=== PATIENT | male | born 1955 | race Caucasian/White ===

== ENCOUNTER 2017-08-27 16:48 | Emergency (ER) | payer MEDICAID ==
[~2017-08-27] VITALS: Ht 182.9 cm; Wt 69.9 kg
[2017-08-27] MEDS ORDERED: ALL DAY ALLERGY10 MG PO (16:59)
[2017-08-27] MEDS ORDERED: OMEPRAZOLE40 MG PO (16:59)
[2017-08-27] MEDS ORDERED: SERTRALINE 50MG50 MG PO (16:59)
[2017-08-27] MEDS ORDERED: NATURE'S BLEND F1 MG PO (17:00)
--- NOTE | 2017-08-27 17:03 | Emergency Room Report ---
History of Present Illness Time Seen by [id number] Presenting Problem in Triage Pt arrived:Walked Presenting Problem:PT REPORTS PAIN WITH INSPIRATION IN R UPPPER BACK X1 MONTH. PT ALSO REPORTS PAIN WITH URINATION X1 WEEK Onset of symptoms date/time:/ or onset unknown for:MEDICAL HX UNKNOWN Treatment Prior to Arrival: INTERNET PROGRAMMER Provided by: Sepsis Risk Assessment: Temp: 97.7 B/P: 106/66 MAP: 79 Pulse: 78 Resp: 18 Recent fever? N Clinical Suspician of Infection? N Mental Status: 1 - Regular (Normal Baseline) Sepsis Risk:Low Sepsis Risk Have you (or family members/close friends) recently traveled outside the [place]? N If Yes, where/when: Have you had exposure to infectious disease within the past month? N TB? Other? Specify: Patient with chronic back pain, and chronic hematuria. Recently on Augmentin for UTI, but continues to have back pain that is positional, relieved with steroid pack and Naproxen per his COUNSELING PSYCHOLOGIST. No fever or vomiting. No new neurological symptoms. Has been seen by Dr. Haile in the past. No abdominal pain. No loss of bowel or bladder function. Back pain seems somewhat worse today, worse with change in position or movement or coughing. No SOB, no cough. ALLERGIES Coded Allergies: meperidine (From Demerol) (Intermediate, I-HIVES/ITCH 09/26/15) oxycodone (From Percocet) (Intermediate, I-HIVES/ITCH 09/26/15) Home Medications Reported Medications CETIRIZINE HCL (All Day Allergy) 10 MG PO DAILY #30 Sertraline Hcl (Sertraline 50MG) 1.5 TAB PO DAILY #45 Omeprazole (Omeprazole 40MG) 40 MG PO DAILY #30 Folic Acid 1 MG PO DAILY #30 History Medical History General CAD? No Angina: No DE: No Hypertension? No Hyperlipidemia? No CHF? No DVT? No COPD? No Asthma? No GERD? Yes Hernia? No Thyroid Problems? Yes CVA? No Seizures? No Diabetes? No UTI? Yes Stones? No GB Disease: No Hepatitis? No Arthritis? Yes Cataracts? No Glaucoma? No TB? No Cancer? Yes Site: BLADDER More? Yes Additional hx: DEPRESSION Immunization Hx DT/Tetanus Unknown Flu Refused Pneumonia Never Had Surgical Hx Previous Surgery?Y BLADDER CA-TUMOR REMOVED BILATERAL EAR SURGERIES TONSILLECTOMY Family History Family Hx Diabetes Yes CAD Yes Hypertension Yes Hyperlipidemia Yes Cancer Yes TB No Social History Smoking Hx Smoker: Current Every Day Smoker Tobacco: Yes Type Cigarettes Packs/day < 1 Pack Alcohol Alcohol: No Review of Systems All Other Systems Reviewed and Negative Genitourinary see HPI. Musculoskeletal see HPI Physical Exam Vital Signs Vital Signs Date Time Temp Pulse Resp B/P Pulse O2 O2 Flow FiO2 Ox Delivery Rate 08/27 1743 77 18 112/70 98 08/27 1653 97.7 78 18 106/66 98 General Appearance normal appearance, WD/WN, no apparent distress Eye Exam - bilateral eye normal exam, bilateral eye PERRL, bilateral eye EOMI Neck normal inspection, non-tender, supple, full range of motion Respiratory Status Yes: trachea midline, chest symmetrical, non tender chest. No: respiratory distress, tender on palpation, use of accessory muscles, pain on inspiration, pain on expiration, productive cough, non productive cough. Lung Sounds bilateral: normal breath sounds, lungs clear. Cardiovascular normal exam, regular rate/rhythm, no peripheral edema, no gallop, no JVD, no murmur, no rub, normal peripheral pulses Gastrointestinal normal bowel sounds, normal exam, non tender, soft, no organomegaly, no pulsatile mass, no guarding, no rebound Back normal inspection, no CVA tenderness, no vertebral tenderness, bowel/ bladder continent, strt leg raising(L)-NML, vertebral tenderness, Positional pain, right lat area with palpation but no CVAT. No pleurisy. Extremities non-tender, normal range of motion, normal inspection, normal capillary refill, no calf tenderness, no pedal edema Strength 5 Upper Ext (L), 5 Upper Ext (R), 5 Lower Ext (L), 5 Lower Ext (R) Neurologic alert, normal exam, no motor/sensory deficits, oriented x 3 Skin intact, normal color, warm/dry Medical Decision Making LABS/Meds/Orders Pt receiving controlled substance in ED? No Results/Orders Laboratory Tests 08/27/17 1700: Urine Color DK YELLOW, Urine Appearance TURBID, Urine pH 7.0, Ur Specific Ken[place] 1.025, Urine Protein 2+ H, Urine Ketones TRACE H, Urine Blood 3+ H, Urine Nitrate POSITIVE H, Urine Bilirubin NEGATIVE, Urine Urobilinogen 1.0, Ur Leukocyte Esterase 2+ H, Urine RBC TNTC, Urine WBC TNTC, Urine Bacteria 4+, Urine Glucose NEGATIVE Orders Procedure Date/time Status URINALYSIS/COMPLETE 08/27 170 Complete CULTURE, URINE 08/27 170 Active Departure Departure Time of Disposition 1738 Disposition DC Home or Self Care(routine) Clinical Impression Primary Impression: Cystitis Condition STABLE Referrals Pedro Luis Haile MD Patient Instructions Urinary Tract Infection Additional Instructions Drink plenty of fluids. Continue the Percocet from your nurse practitioner and see Dr. Haile for follow up in three to four days, sooner if not improving. Rx Cipro: this is an antibiotic. We do not have an antibiotic allergy listed on our records, nor does your pharmacy after we called them to check. You state you have an antibiotic allergy: please check your bottle at home that you say you are allergic to BEFORE you bring your prescription to your pharmacy so your pharmacist can determine if it's safe to take the Cipro or not and also update your allergy list. Discharge Counseling Counseled pt/family regarding diagnosis, test results, medications/RX, home care, follow up needs Prescriptions Current Visit Scripts CIPROFLOXACIN HCL (Cipro 250MG TAB) 250 MG PO BID #20 TAB Phenazopyridine HCl (Pyridium) 100 MG PO Q8HP PRN pain with urination #6 TAB ED Critical Care Critical Care No at 1806
--- OUTSIDE RECORDS SUMMARY | 2017-08-27 17:14 | External Medical Summary Rpt | CCD ---
Author Author , ROSA LEE Address Unknown Phone [email or web address] Care Team Providers Care Economic Development Manager Name Role Phone A Katalina POTTER MD PSC, A Unavailable Unavailable Katalina POTTER MD PSC BESSON SHABBIR, ENRIQUE Unavailable Unavailable SHABBIR DOMINGO ALL, DOMINGO ALL Unavailable Unavailable LAI, DAVIDE F, Unavailable Unavailable LAI, DAVIDE F PARIS, CARI Marie, [place], Unavailable Unavailable CARI Marie [facility], Unavailable Unavailable [facility] Unavailable Unavailable [facility] KRUNAL GRAH[facility], Unavailable Unavailable [facility] Unavailable Unavailable [facility], [facility] NIKA JR JEFFERY, NIKA Unavailable Unavailable JR JEFFERY [facility], [facility] Unavailable Unavailable SINTIA PATRICIO Unavailable Unavailable SINTIA ESSENCE, SINTIA Unavailable Unavailable [facility] Unavailable Unavailable [facility], [facility] Unavailable Unavailable [facility]PITAL P, [facility] P DICK DOWNS, Unavailable Unavailable [facility]available [facility], [facility] KILPELA, KILPELA Unavailable Unavailable KILPELA JEA, KILPELA Unavailable Unavailable [facility], Unavailable Unavailable [facility] MOHINDER SHABBIR, MOHINDER SHABBIR Unavailable Unavailable [facility] Unavailable Unavailable INC[facility], Unavailable Unavailable [facility], Unavailable Unavailable [facility] Unavailable Unavailable MEDICAL SP, [facility] CHRIS TSE, Unavailable Unavailable CHRIS LEONF, MIRYAM Unavailable Unavailable BELLO Purpose Continuity of Care Document - 12-01-2007 through 2016 Problems Code Diagnosis DOS Provider Status R05 COUGH 06-30-2017 [facility] J209 ACUTE 06-29-2017 Denzel POTTER BRONCHITIS PSC UNSPECIFIED [id number] OTHER 06-29-2017 Denzel POTTER SPECIFIED PSC DISORDERS OF BONE SHOULDER R5383 OTHER 06-29-2017 Denzel POTTER FATIGUE PSC [id number] PAIN IN 04-21-2017 Denzel POTTER RIGHT KNEE PSC N390 URINARY 04-21-2017 A Katalina POTTER TRACT PSC INFECTION SITE NOT SPECIFIED R300 DYSURIA 04-21-2017 A Katalina POTTER MD [facility] Z8551 PERSONAL 09-10-2016 [facility] P NEOPLASM OF BLADDER H6591 UNSPECIFIED 06-17-2016 A Katalina POTTER MD [facility] NONSUPPURAT BREANNE OTITIS MEDIA RT EAR J0100 ACUTE 06-17-2016 A Katalina POTTER MAXILLARY [facility] SINUSITIS UNSPECIFIED B958 UNS 05-19-2016 A Katalina POTTER STAPHYLOCOC [facility] CUSS CAUSE OF DZ CLASSIFIED ELSW [id number] ALLERGY 05-19-2016 A Katalina COMBS MD [facility] INITIAL ENCOUNTER R310 GROSS 03-20-2016 [facility] R972 ELEVATED 02-26-2016 [facility] SPECIFIC ANTIGEN PSA M549 DORSALGIA 01-08-2016 [facility] N87777 PAIN IN 01-08-2016 A Katalina POTTER RIGHT LEG [facility] R350 FREQUENCY 01-08-2016 A Katalina CASTAÑEDA [facility] MICTURITION R319 HEMATURIA 10-10-2015 [facility] P C679 MALIGNANT 09-26-2015 [facility] NEOPLASM OF ANESTH OF BLADDER [facility] UNSPECIFIED N342 OTHER 08-22-2015 A Katalina POTTER URETHRITIS [facility] 5990 URINARY 04-23-2015 A Katalina POTTER TRACT [facility] INFECTION SITE NOT SPECIFIED 7881 DYSURIA 04-23-2015 A Katalina POTTER MD [facility] V692 PROBLEMS 04-23-2015 A Katalina POTTER RELATED TO [facility] HIGH-RISK SEXUAL BEHAVIOR 35919 UNSPECIFIED 04-16-2015 [facility] DENTAL ANESTH OF CAR[facility] 7242 LUMBAGO 03-26-2015 A Katalina POTTER MD [facility] 4779 ALLERGIC 02-19-2015 A Katalina POTTER RHINITIS [facility] CAUSE UNSPECIFIED 96654 ESOPHAGEAL 02-19-2015 A Katalina POTTER REFLUX [facility] 5259 UNSPECIFIED 11-14-2014 [facility] RTING STRUCTURES 2768 HYPOPOTASSE 05-06-2010 KIRK G[facility] 13683 DIARRHEA 05-06-2010 KRUNAL [facility] 71961 DIAB W/O 01-04-2008 JOELLE COMP TYPE DAVIDE F II/UNS NOT STATED UNCNTRL 2727 LIPIDOSES 01-04-2008 DAVIDE LAI F 7249 OTHER 01-04-2008 HARTING, UNSPECIFIED DICK E BACK DISORDER 7295 PAIN IN 01-04-2008 LAI, SOFT DAVIDE F TISSUES OF LIMB 23315 REFLUX 12-01-2007 CARI TOL[place]O ESOPHAGITIS E 63747 DYSPHAGIA 12-01-2007 [facility] PHARYNGOESO E PHAGEAL PHASE Medications Na ND Rx Da Fi Fi Am Da Di Ph RX Ph St me C No te ll ll ou ys ag ar # ys at rm s nt no ma ic us Or Da si cy ia de te s n re d FO 65 09 10 30 30 00 EA Ac LI 16 -2 -[address] ti C 20 1- 0- 00 00 SI ve AC 36 20 20 50 DE ID 11 17 17 25 1 1 03 PH AR MG MA CY TA BL OF ET CY NT HI AN A IN C OM 62 09 10 30 30 00 EA Ac EP 17 -0 -[address] ti RA 50 7- 6- 00 00 SI ve ZO 13 20 20 49 DE LE 64 17 [address] AR MA 40 CY MG OF CY CA NT PS HI UL AN E A IN C CE 16 09 10 30 30 00 EA Ac TI 71 -0 -[address] ti RI 40 7- 6- 00 00 SI ve ZI 27 20 20 49 DE NE 10 17 17 37 3 88 PH HC AR L MA 10 CY MG OF CY TA NT BL HI ET AN A IN C SE 16 09 10 45 30 00 EA Ac RT 71 -0 -[address] ti RA 40 7- 6- 00 00 SI ve LI 61 20 20 49 DE NE 20 17 17 37 6 90 PH HC AR L MA 50 CY MG OF CY TA NT BL HI ET AN A IN C AZ 64 08 09 6. 5 00 EA Ac IT 67 -2 -[address] ti HR 90 2- 5- 0 00 SI ve OM 96 20 20 49 DE YC 10 17 17 88 IN 5 34 PH AR 25 MA 0 CY MG OF TA CY BL NT ET HI AN A IN C FO 65 08 09 30 30 00 EA Ac LI 16 -2 -[address] ti C 20 2- 5- 00 00 SI ve AC 36 20 20 49 DE ID 11 17 17 88 1 1 35 PH AR MG MA CY TA BL OF ET CY NT HI AN A IN C VE 00 08 09 18 18 00 EA Ac NT 17 -2 -[address] ti OL 30 2- 5- 00 00 SI ve IN 68 20 20 49 DE 22 17 17 88 HF 0 36 PH A AR 90 MA CY MC G OF IN CY DOUGLAS NT LE HI R AN A IN C DI 65 08 09 40 30 00 EA Ac CL 16 -2 -[address] ti OF 20 2- 5- 00 00 SI ve EN 83 20 20 0 49 DE AC 36 17 17 88 6 37 PH SO AR DI MA UM CY 1% OF CY GE NT L HI AN A IN C SE 16 08 09 45 30 00 EA Ac RT 71 -0 -[address] ti RA 40 8- 1- 00 00 SI ve LI 61 20 20 49 DE NE 20 17 17 37 6 90 PH HC AR L MA 50 CY MG OF CY TA NT BL HI ET AN A IN C OM 62 08 09 30 30 00 EA Ac EP 17 -0 -[address] ti RA 50 8- 1- 00 00 SI ve ZO 13 20 20 49 DE LE 64 17 [address] AR MA 40 CY MG OF CY CA NT PS HI UL AN E A IN C CE 16 08 09 30 30 00 EA Ac TI 71 -0 -[address] ti RI 40 8- 1- 00 00 SI ve ZI 27 20 20 49 DE NE 10 17 17 37 3 88 PH HC AR L MA 10 CY MG OF CY TA NT BL HI ET AN A IN C DI 65 07 08 10 14 00 EA Ac CL 16 -2 -[address] ti OF 20 6- 8- 00 00 SI ve EN 83 20 20 0 49 DE AC 36 17 17 13 6 08 PH SO AR DI MA UM CY 1% OF CY GE NT L HI AN A IN C NA 68 07 08 60 30 00 EA Ac OH 46 -2 -[address] ti OX 20 6- 8- 00 00 SI ve EN 17 20 20 49 DE 90 17 17 57 SO 1 72 PH DI AR UM MA CY 55 0 OF MG CY NT TA HI B AN A IN C CE 16 07 08 30 30 00 EA Ac TI 71 -0 -[address] ti RI 40 7- 4- 00 00 SI ve ZI 27 20 20 49 DE NE 10 17 17 37 3 88 PH HC AR L MA 10 CY MG OF CY TA NT BL HI ET AN A IN C OM 62 07 08 30 30 00 EA Ac EP 17 -0 -[address] ti RA 50 7- 4- 00 00 SI ve ZO 13 20 20 49 DE LE 64 17 [address] AR MA 40 CY MG OF CY CA NT PS HI UL AN E A IN C SE 16 07 08 45 30 00 EA Ac RT 71 -0 -[address] ti RA 40 7- 4- 00 00 SI ve LI 61 20 20 49 DE NE 20 17 17 37 6 90 PH HC AR L MA 50 CY MG OF CY TA NT BL HI ET AN A IN C NA 68 06 07 60 30 00 EA Ac OH 46 -0 -[address] ti OX 20 8- 7- 00 00 SI ve EN 17 20 20 49 DE 90 17 17 05 SO 1 97 PH DI AR UM MA CY 55 0 OF MG CY NT TA HI B AN A IN C DI 65 06 07 10 14 00 EA Ac CL 16 -1 -[address] ti OF 20 4- 7- 00 00 SI ve EN 83 20 20 0 49 DE AC 36 17 17 13 6 08 PH SO AR DI MA UM CY 1% OF CY GE NT L HI AN A IN C DO 49 06 07 14 7 00 EA Ac XY 88 -1 -[address] ti CY 40 4- 7- 00 00 SI ve CL 72 20 20 49 DE IN 70 17 17 13 E 3 07 PH MO AR NO MA CY 10 0 OF MG CY NT CA HI P AN A IN C CE 16 06 06 30 30 00 EA Ac TI 71 -0 -[address] ti RI 40 6- 0- 00 00 SI ve ZI 27 20 20 48 DE NE 10 17 17 29 3 16 PH HC AR L MA 10 CY MG OF CY TA NT BL HI ET AN A IN C OM 62 06 06 30 30 00 EA Ac EP 17 -0 -[address] ti RA 50 6- 0- 00 00 SI ve ZO 13 20 20 48 DE LE 64 17 [address] AR MA 40 CY MG OF CY CA NT PS HI UL AN E A IN C SE 16 06 06 45 30 00 EA Ac RT 71 -0 -[address] ti RA 40 6- 0- 00 00 SI ve LI 61 20 20 48 DE NE 20 17 17 29 6 15 PH HC AR L MA 50 CY MG OF CY TA NT BL HI ET AN A IN C OM 62 05 06 30 30 00 EA Ac EP 17 -0 -[address] ti RA 50 6- 2- 00 00 SI ve ZO 13 20 20 48 DE LE 64 17 [address] AR MA 40 CY MG OF CY CA NT PS HI UL AN E A IN C SE 16 05 06 45 30 00 EA Ac RT 71 -0 -[address] ti RA 40 6- 2- 00 00 SI ve LI 61 20 20 48 DE NE 20 17 17 29 6 15 PH HC AR L MA 50 CY MG OF CY TA NT BL HI ET AN A IN C CE 16 05 06 30 30 00 EA Ac TI 71 -0 -[address] ti RI 40 6- 2- 00 00 SI ve ZI 27 20 20 48 DE NE 10 17 17 29 3 16 PH HC AR L MA 10 CY MG OF CY TA NT BL HI ET AN A IN C OM 62 04 05 30 30 00 EA Ac EP 17 -0 -[address] ti RA 50 7- 5- 00 00 SI ve ZO 13 20 20 48 DE LE 64 17 [address] AR MA 40 CY MG OF CY CA NT PS HI UL AN E A IN C SE 16 04 05 45 30 00 EA Ac RT 71 -0 -[address] ti RA 40 7- 5- 00 00 SI ve LI 61 20 20 48 DE NE 20 17 17 29 6 15 PH HC AR L MA 50 CY MG OF CY TA NT BL HI ET AN A IN C CE 16 04 05 30 30 00 EA Ac TI 71 -0 -[address] ti RI 40 7- 5- 00 00 SI ve ZI 27 20 20 48 DE NE 10 17 17 29 3 16 PH HC AR L MA 10 CY MG OF CY TA NT BL HI ET AN A IN C KE 00 04 05 12 30 00 EA Ac TO 78 -0 -[address] ti CO 17 7- 5- 00 00 SI ve NA 09 20 20 0 48 DE ZO 00 17 17 29 LE 4 17 PH AR 2% MA CY SH AM OF PO CY O NT HI AN A IN C MU 00 03 04 22 14 00 EA Ac PI 09 -3 -[address] ti RO 31 0- 8- 00 00 SI ve CI 01 20 20 48 DE N 04 17 17 18 2% 2 20 PH AR OI MA NT CY ME NT OF CY NT HI AN A IN C OM 62 03 03 30 30 00 EA Ac EP 17 -0 -[address] ti RA 50 7- 1- 00 00 SI ve ZO 13 20 20 46 DE LE 64 17 [address] AR MA 40 CY MG OF CY CA NT PS HI UL AN E A IN C NA 68 03 03 60 30 00 EA Ac OH 46 -0 -[address] ti OX 20 7- 1- 00 00 SI ve EN 17 20 20 47 DE 90 17 17 88 SO 1 51 PH DI AR UM MA CY 55 0 OF MG CY NT TA HI B AN A IN C CE 16 03 03 30 30 00 EA Ac TI 71 -0 -[address] ti RI 40 7- 1- 00 00 SI ve ZI 27 20 20 47 DE NE 10 17 17 88 3 52 PH HC AR L MA 10 CY MG OF CY TA NT BL HI ET AN A IN C SE 16 03 03 45 30 00 EA Ac RT 71 -0 -[address] ti RA 40 7- 1- 00 00 SI ve LI 61 20 20 47 DE NE 20 17 17 88 6 53 PH HC AR L MA 50 CY MG OF CY TA NT BL HI ET AN A IN C OM 62 02 03 30 30 00 EA Ac EP 17 -0 -[address] ti RA 50 3- 3- 00 00 SI ve ZO 13 20 20 46 DE LE 64 17 [address] AR MA 40 CY MG OF CY CA NT PS HI UL AN E A IN C CE 16 02 03 30 30 00 EA Ac TI 71 -0 -[address] ti RI 40 3- 3- 00 00 SI ve ZI 27 20 20 46 DE NE 10 17 17 92 3 38 PH HC AR L MA 10 CY MG OF CY TA NT BL HI ET AN A IN C SE 16 02 03 45 30 00 EA Ac RT 71 -0 -[address] ti RA 40 3- 3- 00 00 SI ve LI 61 20 20 47 DE NE 20 17 17 48 6 89 PH HC AR L MA 50 CY MG OF CY TA NT BL HI ET AN A IN C CE 16 12 01 30 30 00 EA Ac TI 71 -1 -[address] ti RI 40 6- 3- 00 00 SI ve ZI 27 20 20 46 DE NE 10 16 17 92 3 38 PH HC AR L MA 10 CY MG OF CY TA NT BL HI ET AN A IN C SE 16 12 01 45 30 00 EA Ac RT 71 -1 -[address] ti RA 40 6- 3- 00 00 SI ve LI 61 20 20 46 DE NE 20 16 17 92 6 39 PH HC AR L MA 50 CY MG OF CY TA NT BL HI ET AN A IN C OM 62 12 01 30 30 00 EA Ac EP 17 -2 -[address] ti RA 50 1- 3- 00 00 SI ve ZO 13 20 20 46 DE LE 64 16 [address] RIVERA MA 40 CY MG OF CY CA NT PS HI UL AN E A IN C Procedures Procedure DOS Code Location Performer Comment RADIOLOGI 92864 [facility] GR[facility] C EXAM [facility] CHEST 2 INC INC VIEWS FRONTAL&L ATERAL COLLECTIO 25159 A C PATRICIO N VENOUS 7 ABBEY HOGAN BLOOD PSC VENIPUNCT URE URINLS 95486 A C KILPELA DIP 7 ABBEY HOGAN STICK/TAB PSC LET REAGNT NON-AUTO MICRSCPY URNLS DIP 86881 CHEO MAHER JR [address] [place] [address] LET RGNT P NON-AUT[place] W/[place] [address] [facility] ALL ABDOMEN & 6 MEDICAL PELVIS IMAGING W/[place] [address] [facility] PROSTATE 6 DIAGNOSTI DIAGNOSTI SPECIFIC CS CS ANTIGEN TOTAL CULTURE 05057 [facility] BCT 6 DIAGNOSTI DIAGNOSTI ISOL&PRSM CS CS PTV ID ISOLATE EA URINE CULTURE 88601 [facility] BACTERIAL 6 DIAGNOSTI DIAGNOSTI CS CS QUANTTATI VE COLONY COUNT URINE URINLS 02760 A C KILPELA DIP 6 ABBEY HOGAN JEA STICK/TAB PSC LET REAGNT NON-AUTO MICRSCPY COMPREHEN 35701 [facility] SIVE 6 DIAGNOSTI DIAGNOSTI METABOLIC CS CS PANEL BLOOD 50567 A C KILPELA COUNT 6 ABBEY HOGAN JEDenzel COMPLETE PSC AUTO&AUTO DIFRNTL WBC URNLS DIP 38491 CHEO MAHER JR [address] [place] [address] LET RGNT P NON-AUTO W/O MICRSCP ANES 65575 [facility] TRANSURET 5 ANESTH BELLO HRAL OF THE W/URETHRO BLUE CYSTOSCOP Y NOS ECG 44891 CHEO NUNEZ ROUTINE 5 [facility] W/LEAST P 12 LDS I&R ONLY CYSTOURET 48659 [facility] GR[facility]ER HROSCOPY 5 [place] [address] [facility] INFUSION 5 [facility] THERAPY INC INC PROPHYLAX IS/DX EA HOUR UNCLASSIF J3490 [facility] IED DRUGS 5 [facility] INC INC CHANTAL 40721 [facility] MAHER POST-VOID 5 [facility] RESIDUAL P URINE&/BL ADDER CAP URNLS DIP 44634 CHEO MAHER JR 5 [facility] LET RGNT P NON-AUTO W/O MICRSCP SUSCEPTIB 93452 [facility] LTY STDY 5 DIAGNOSTI DIAGNOSTI ANTIMICRB CS CS IAL MICRO/AGA R DILUTJ URINLS 24828 A C KILPELA DIP 5 ABBEY HOGAN JEA STICK/TAB PSC LET REAGNT NON-AUTO MICRSCPY CUL BACT 42176 [facility] AEROBIC 5 DIAGNOSTI DIAGNOSTI ADDL CS CS METHS DEFINITIV E EA ISOL CULTURE 01179 [facility] BACTERIAL 5 DIAGNOSTI DIAGNOSTI CS CS QUANTTATI VE COLONY COUNT URINE CULTURE 00199 [facility] BCT 5 DIAGNOSTI DIAGNOSTI ISOL&PRSM CS CS PTV ID ISOLATE EA URINE CULTURE 47364 [facility] BCT 5 DIAGNOSTI DIAGNOSTI ISOL&PRSM CS CS PTV ID ISOLATE EA URINE URINLS 72827 A C MOHINDER SHABBIR DIP 5 ABBEY HOGAN STICK/TAB PSC LET REAGNT NON-AUTO MICRSCPY CUL BACT 20817 [facility] AEROBIC 5 DIAGNOSTI DIAGNOSTI ADDL CS CS METHS DEFINITIV E EA ISOL CULTURE 30528 [facility] BACTERIAL 5 DIAGNOSTI DIAGNOSTI CS CS QUANTTATI VE COLONY COUNT URINE SUSCEPTIB 52120 [facility] LTY STDY 5 DIAGNOSTI DIAGNOSTI ANTIMICRB CS CS IAL MICRO/AGA R DILUTJ COLLECTIO 15871 A C MOHINDER SHABBIR N VENOUS 5 ABBEY HOGAN BLOOD PSC VENIPUNCT URE URINLS 75328 A C MOHINDER SHABBIR DIP 5 ABBEY HOGAN STICK/TAB PSC LET REAGNT NON-AUTO MICRSCPY ANESTHESI 06124 [facility] CHRIS A 5 ANESTH SHE INTRAORAL OF THE WITH BLUE BIOPSY NOS THERAPEUT 71148 [facility] [address] [place] [address] PROPHYLAC INC. INC. TIC/DX INJECTION SUBQ/IM UNCLASSIF J3490 [facility] [address] [place] [address] INC. INC. INJECTION J1885 [address] [employer] INC. INC. TROMETHAM INE PER 15 MG ALBUMIN 35064 JOELLE LAI, URINE 8 DAVIDE F DAVIDE F MICROALBU MIN SEMIQUANT ITATIVE HEMOGLOBI 51372 JOELLE LAI, N 8 DAVIDE F DAVIDE F GLYCOSYLA CHAI A1C COMPREHEN 37341 [facility] [place] [facility] [place] [facility] METABOLIC PANEL RADEX 33807 JOELLE LAI SPINE 8 DAVIDE F DAVIDE F LUMBOSACR AL MINIMUM 4 VIEWS Encounters Encounter Start End Date Code Location Performer Type Date HOSPITAL [facility] - 7 7 [facility] OUTPATIEN [facility] T OFFICE 81016 A C PATRICIO OUTPATIEN 7 7 ABBEY HOGAN T VISIT PSC 25 MINUTES OFFICE 45882 A C ARNOLDPELA OUTPATIEN 7 7 [facility]BE[facility] HOGAN T VISIT PSC 15 MINUTES OFFICE 82740 [facility]O MAHER JR OUTPATIEN 6 6 [facility] 10 P MINUTES OFFICE 43341 A C PATRICIO OUTPATIEN 6 6 ABBEY LOWRY T VISIT PSC 15 MINUTES OFFICE 81352 A C PATRICIO OUTPATIEN 6 6 [facility] LOWRY T VISIT PSC 15 MINUTES HOSPITAL CHEO - 6 6 [facility] OUTPATIEN [facility] T OFFICE 19728 A C KILPELA OUTPATIEN 6 6 ABBEY CUMMINS T VISIT PSC 15 MINUTES OFFICE 90981 [facility] MAHER JR OUTPATIEN 5 5 [facility] 10 P MINUTES HOSPITAL [facility] - 5 5 [facility]HER OUTPATIEN 5 5 [facility] MINUTES P OFFICE 59506 A C PORTILLOHELENA OUTPATIEN 5 5 ABBEY CUMMINS T VISIT PSC 15 MINUTES OFFICE 59932 A Katalina VINES SHABBIR OUTPATIEN 5 5 ABBEY HOGAN T VISIT PSC 15 MINUTES OFFICE 89662 A Katalina VINES SHABBIR OUTPATIEN 5 5 ABBEY HOGAN T VISIT PSC 15 MINUTES OFFICE 33590 A Katalina ZULUAGA AMB OUTPATIEN 5 5 ABBEY HOGAN T VISIT PSC 15 MINUTES OFFICE 42791 A C DOM OUTPATIEN 5 5 ABBEY HOGAN [facility] PSC MINUTES EMERGENCY 75737 [place] 5 [facility] 2001 T VISIT MODERATE SEVERITY EMERGENCY 59918 [facility] 5 5 [facility] T VISIT SP HIGH/URGE NT SEVERITY HOSPITAL [facility] 5 5 [facility] T HOSPITAL CARITAS - 0 0 [facility] T EMERGENCY 17903 CARITAS 0 0 [facility] T VISIT MODERATE SEVERITY OFFICE 65654 JOELLE LAI OUTRUDDY 8 8 DAVIDE Hurley T VISIT 25 MINUTES OFFICE 76666 [facility] CARI Marie T VISIT 15 MINUTES
--- OUTSIDE RECORDS SUMMARY | 2017-08-27 17:14 | External Medical Summary Rpt | CCD ---
Author Author , ROSA LEE Address Unknown Phone [email or web address] Care Team Providers Care Jogger Operator Name Role Phone A Katalina POTTER MD PSC, A Unavailable Unavailable Katalina POTTER MD PSC BESSON SHABBIR, ENRIQUE Unavailable Unavailable SHABBIR DOMINGO ALL, DOMINGO ALL Unavailable Unavailable LAI, DAVIDE F, Unavailable Unavailable LAI, DAVIDE F [place], CARI Marie, [place], Unavailable Unavailable CARI Marie [facility], Unavailable Unavailable [facility] Unavailable Unavailable [facility] KRUNAL GRAHAM, Unavailable Unavailable [facility] Unavailable Unavailable [facility], [facility] NIKA JR JEFFERY, NIKA Unavailable Unavailable JR JEFFERY FIELD AM[facility], FIELD AMB Unavailable Unavailable SINTIA PATRICIO Unavailable Unavailable SINTIA ESSENCE, SINTIA Unavailable Unavailable ESSENCE [facility] Unavailable Unavailable INC, [facility] Unavailable Unavailable HOSPITAL P, [facility] DICK DOWNS, Unavailable Unavailable DICK DOWNS [facility] Unavailable [facility] KILPELA, KILPELA Unavailable Unavailable KILPELA JEA, KILPELA Unavailable Unavailable [facility], Unavailable Unavailable [facility] MOHINDER SHABBIR, MOHINDER SHABBIR Unavailable Unavailable [facility] Unavailable Unavailable INC., [facility], Unavailable Unavailable [facility], Unavailable Unavailable [facility] Unavailable Unavailable MEDICAL SP, [facility] CHRIS TSE, Unavailable Unavailable CHRIS LEONF, MIRYAM Unavailable Unavailable BELLO Purpose Continuity of Care Document - 12-01-2007 through 2016 Problems Code Diagnosis DOS Provider Status R05 COUGH 06-30-2017 [facility] J209 ACUTE 06-29-2017 Denzel POTTER BRONCHITIS PSC UNSPECIFIED [id number] OTHER 06-29-2017 Denzel POTTER SPECIFIED PSC DISORDERS OF BONE SHOULDER R5383 OTHER 06-29-2017 Denzel POTTER FATIGUE PSC [id number] PAIN IN 04-21-2017 Denzel POTTER RIGHT KNEE PSC N390 URINARY 04-21-2017 A Katalina POTTER TRACT PSC INFECTION SITE NOT SPECIFIED R300 DYSURIA 04-21-2017 A Katalina POTTER MD [facility] Z8551 PERSONAL 09-10-2016 [facility] P NEOPLASM OF BLADDER H6591 UNSPECIFIED 06-17-2016 A Katalina POTTER MD [facility] NONSUPPURAT BREANNE OTITIS MEDIA RT EAR J0100 ACUTE 06-17-2016 A Katalina POTTER MAXILLARY [facility] SINUSITIS UNSPECIFIED B958 UNS 05-19-2016 A Katalina POTTER STAPHYLOCOC [facility] CUSS CAUSE OF DZ CLASSIFIED ELSW [id number] ALLERGY 05-19-2016 A Katalina COMBS MD [facility] INITIAL ENCOUNTER R310 GROSS 03-20-2016 [facility] R972 ELEVATED 02-26-2016 [facility] SPECIFIC ANTIGEN PSA M549 DORSALGIA 01-08-2016 [facility] U[facility]PEC[facility] [id number] PAIN IN 01-08-2016 A Katalina POTTER RIGHT LEG [facility] R350 FREQUENCY 01-08-2016 A Katalina CASTAÑEDA [facility] MICTURITION R319 HEMATURIA 10-10-2015 [facility] P C679 MALIGNANT 09-26-2015 [facility]ITY NEOPLASM OF ANESTH OF BLADDER THE BLUE UNSPECIFIED N342 OTHER 08-22-2015 A Katalina POTTER URETHRITIS [facility] 5990 URINARY 04-23-2015 A Katalina POTTER TRACT [facility] INFECTION SITE NOT SPECIFIED 7881 DYSURIA 04-23-2015 A Katalina POTTER MD [facility] V692 PROBLEMS 04-23-2015 A Katalina POTTER RELATED TO [facility] HIGH-RISK SEXUAL BEHAVIOR 58378 UNSPECIFIED 04-16-2015 [facility] DENTAL ANESTH OF CARIES [facility]UE 7242 LUMBAGO 03-26-2015 A Katalina POTTER MD [facility] 4779 ALLERGIC 02-19-2015 A Katalina POTTER RHINITIS [facility] CAUSE UNSPECIFIED 51182 ESOPHAGEAL 02-19-2015 A Katalina POTTER REFLUX [facility] 5259 UNSPECIFIED 11-14-2014 [facility] TEETH&SUPPO MEDICAL SP RTING STRUCTURES 2768 HYPOPOTASSE 05-06-2010 KIRK G[facility] 61934 DIARRHEA 05-06-2010 KRUNAL [facility] 03807 DIAB W/O 01-04-2008 JOELLE COMP TYPE DAVIDE F II/UNS NOT STATED UNCNTRL 2727 LIPIDOSES 01-04-2008 DAVIDE LAI F 7249 OTHER 01-04-2008 HARTING, UNSPECIFIED DICK E BACK DISORDER 7295 PAIN IN 01-04-2008 LAI, SOFT DAVIDE F TISSUES OF LIMB 07921 REFLUX 12-01-2007 CARI TOL[place]O ESOPHAGITIS E 34295 DYSPHAGIA 12-01-2007 CARI TOL[place]O PHARYNGOESO E PHAGEAL [...] 07 08 60 30 00 EA Ac LA 46 -2 -[address] ti [...] 06 07 60 30 00 EA Ac LA 46 -0 -[address] ti [...] 03 03 60 30 00 EA Ac LA 46 -0 -[address] ti [...] Procedure DOS Code Location Performer Comment RADIOLOGI 92275 [facility] C EXAM [facility] CHEST 2 INC INC VIEWS FRONTAL&L ATERAL COLLECTIO 86636 A C PATRICIO N VENOUS 7 ABBEY HOGAN BLOOD PSC VENIPUNCT URE URINLS 66100 A C KILPELA DIP 7 ABBEY HOGAN STICK/TAB PSC LET REAGNT NON-AUTO MICRSCPY URNLS DIP 29347 CHEO MAHER JR [address] [place] [address] LET RGNT P NON-AUTO W/[place] [address] [facility] ALL ABDOMEN & 6 MEDICAL PELVIS IMAGING W/[place] [address] [facility] PROSTATE 6 DIAGNOSTI DIAGNOSTI SPECIFIC CS CS ANTIGEN TOTAL CULTURE 88239 [facility] BCT 6 DIAGNOSTI DIAGNOSTI ISOL&PRSM CS CS PTV ID ISOLATE EA URINE CULTURE 08522 [facility] BACTERIAL 6 DIAGNOSTI DIAGNOSTI CS CS QUANTTATI VE COLONY COUNT URINE URINLS 30110 A C KILPELA DIP 6 ABBEY HOGAN JEA STICK/TAB PSC LET REAGNT NON-AUTO MICRSCPY COMPREHEN 90001 [facility] SIVE 6 DIAGNOSTI DIAGNOSTI METABOLIC CS CS PANEL BLOOD 99599 A C KILPELA COUNT 6 ABBEY HOGAN JEDenzel COMPLETE PSC AUTO&AUTO DIFRNTL WBC URNLS DIP 40793 CHEO MAHER JR [address] [place] [address] LET RGNT P NON-AUTO W/O MICRSCP ANES 30862 [facility] TRANSURET 5 ANESTH BELLO HRAL OF THE W/URETHRO BLUE CYSTOSCOP Y NOS ECG 87194 CHEO NUNEZ ROUTINE 5 [facility] W/LEAST P 12 LDS I&R ONLY CYSTOURET 32489 CHEO GRIDER HROSCOPY 5 [place] [address] [facility] GR[facility] INFUSION 5 [facility] THERAPY INC INC PROPHYLAX IS/DX EA HOUR UNCLASSIF J3490 CHEO CHEO IED DRUGS 5 [facility] INC INC CHANTAL 55816 CHEO MAHER POST-VOID 5 [facility] RESIDUAL P URINE&/BL ADDER CAP URNLS DIP 53988 CHEO MAHER JR 5 [facility] LET RGNT P NON-AUTO W/O MICRSCP SUSCEPTIB 88695 [facility] LTY STDY 5 DIAGNOSTI DIAGNOSTI ANTIMICRB CS CS IAL MICRO/AGA R DILUTJ URINLS 66866 A C KILPELA DIP 5 ABBEY HOGAN JEA STICK/TAB PSC LET REAGNT NON-AUTO MICRSCPY CUL BACT 53106 [facility] AEROBIC 5 DIAGNOSTI DIAGNOSTI ADDL CS CS METHS DEFINITIV E EA ISOL CULTURE 39033 [facility] BACTERIAL 5 DIAGNOSTI DIAGNOSTI CS CS QUANTTATI VE COLONY COUNT URINE CULTURE 17189 [facility] BCT 5 DIAGNOSTI DIAGNOSTI ISOL&PRSM CS CS PTV ID ISOLATE EA URINE CULTURE 54558 [facility] BCT 5 DIAGNOSTI DIAGNOSTI ISOL&PRSM CS CS PTV ID ISOLATE EA URINE URINLS 93953 A C MOHINDER SHABBIR DIP 5 ABBEY HOGAN STICK/TAB PSC LET REAGNT NON-AUTO MICRSCPY CUL BACT 35795 [facility] AEROBIC 5 DIAGNOSTI DIAGNOSTI ADDL CS CS METHS DEFINITIV E EA ISOL CULTURE 07850 [facility] BACTERIAL 5 DIAGNOSTI DIAGNOSTI CS CS QUANTTATI VE COLONY COUNT URINE SUSCEPTIB 96961 [facility] LTY STDY 5 DIAGNOSTI DIAGNOSTI ANTIMICRB CS CS IAL MICRO/AGA R DILUTJ COLLECTIO 26779 A C MOHINDER SHABBIR N VENOUS 5 ABBEY HOGAN BLOOD PSC VENIPUNCT URE URINLS 84827 A C MOHINDER SHABBIR DIP 5 ABBEY HOGAN STICK/TAB PSC LET REAGNT NON-AUTO MICRSCPY ANESTHESI 58809 COMMUNITY CHRIS A 5 ANESTH SHE INTRAORAL OF THE WITH BLUE BIOPSY NOS THERAPEUT 83167 [facility] [address] [place] [address] PROPHYLAC INC. INC. TIC/DX INJECTION SUBQ/IM UNCLASSIF J3490 [facility] IED DRUGS [address] [place] [address] INC. INC. INJECTION J1885 [address] K[employer] INC. INC. TROMETHAM INE PER 15 MG ALBUMIN 64709 JOELLE LAI, URINE 8 DAVIDE F DAVIDE F MICROALBU MIN SEMIQUANT ITATIVE HEMOGLOBI 55785 JOELLE LAI, N 8 DAVIDE F DAVIDE F GLYCOSYLA CHAI A1C COMPREHEN 10440 [facility] [place] [facility] [place] [facility] METABOLIC PANEL RADEX 76655 JOELLE LAI SPINE 8 DAVIDE F DAVIDE F LUMBOSACR AL MINIMUM 4 VIEWS Encounters Encounter Start End Date Code Location Performer Type Date HOSPITAL [facility] - 7 7 [facility] OUT[facility] T OFFICE 98354 A C PATRICIO OUTPATIEN 7 7 ABBEY HOGAN T VISIT PSC 25 MINUTES OFFICE 73849 A C ARNOLDPELA OUTPATIEN 7 7 ABBEY HOGAN T VISIT PSC 15 MINUTES OFFICE 49592 CHEO MAHER JR OUTPATIEN 6 6 [facility] 10 P MINUTES OFFICE 04963 A C PATRICIO OUTPATIEN 6 6 ABBEY LOWRY T VISIT PSC 15 MINUTES OFFICE 20034 A C PATRICIO OUTPATIEN 6 6 ABBEY LOWRY T VISIT PSC 15 MINUTES HOSPITAL CHEO - 6 6 [facility] OUTPATIEN [facility] T OFFICE 72094 A C KILPELA OUTPATIEN 6 6 ABBEY CUMMINS T VISIT PSC 15 MINUTES OFFICE 41802 CHEO MAHER JR OUTPATIEN 5 5 [facility] 10 P MINUTES HOSPITAL CHEO - 5 5 [facility] 31338 CHEO MAHER OUTPATIEN 5 5 [facility] MINUTES P OFFICE 55170 A C PORTILLOHELENA OUTPATIEN 5 5 ABBEY CUMMINS T VISIT PSC 15 MINUTES OFFICE 23452 A Katalina VINES SHABBIR OUTPATIEN 5 5 ABBEY HOGAN T VISIT PSC 15 MINUTES OFFICE 15577 A Katalina VINES SHABBIR OUTPATIEN 5 5 ABBEY HOGAN T VISIT PSC 15 MINUTES OFFICE 30145 A Katalina ZULUAGA AMB OUTPATIEN 5 5 ABBEY HOGAN T VISIT PSC 15 MINUTES OFFICE 12810 A C DOM OUTPATIEN 5 5 ABBEY HOGAN [facility] MINUTES EMERGENCY 41716 [place] 5 5 [facility] T VISIT MODERATE SEVERITY EMERGENCY 14882 [facility] 5 5 [facility] T VISIT SP HIGH/URGE NT SEVERITY HOSPITAL [facility] 5 5 [facility] T HOSPITAL CARITAS - 0 0 [facility] C[facility] T EMERGENCY 85716 CARITAS 0 0 [facility] T VISIT MODERATE SEVERITY OFFICE 90490 JOELLE LAI OUTRUDDY 8 8 DAVIDE Hurley T VISIT 25 MINUTES OFFICE 73760 [place] [facility] 8 CARI Marie T VISIT 15 MINUTES
--- OUTSIDE RECORDS SUMMARY | 2017-08-27 17:16 | External Medical Summary Rpt | CCD ---
Author Author , ROSA Brar ROSA Address Unknown Phone Care Team Providers Care Rcis Name Role Phone A Katalina POTTER MD PSC, A Unavailable Unavailable Katalina POTTER MD PSC ENRIQUE SHABBIR, ENRIQUE Unavailable Unavailable SHABBIR DOMINGO, DOMINGO Unavailable Unavailable LAI DAVIDE F, Unavailable Unavailable LAI, DAVIDE F CARI TOLEDO, [place], Unavailable Unavailable CARI BELL, Unavailable Unavailable KRUNAL CHENG, Unavailable Unavailable [facility] Unavailable Unavailable [facility], [facility] NIKA JR JEFFERY, NIKA Unavailable Unavailable JR JEFFERY FIELD AMB, FIELD AMB Unavailable Unavailable PATRICIO, PATRICIO Unavailable Unavailable PATRICIO ESSENCE, PATRICIO Unavailable Unavailable ESSENCE [facility] Unavailable Unavailable INC, [facility] Un[facility] Un[facility] P, [facility] DICK DOWNS, Unavailable Unavailable DICK DOWNS [facility] Unavailable Unavailable [facility], [facility] KILPELA, KILPELA Unavailable Unavailable KILPELA JEA, KILPELA Unavailable Unavailable [facility], Unavailable Unavailable [facility] MOHINDER SHABBIR, MOHINDER SHABBIR Unavailable Unavailable [facility] Unavailable Unavailable INC., [facility], Unavailable Unavailable [facility], Unavailable Unavailable [facility] Unavailable Unavailable MEDICAL SP, [facility] CHRIS TSE, Unavailable Unavailable CHRIS MONSALVE, MIRYAM Unavailable Unavailable BELLO Purpose Continuity of Care Document - 12-01-2007 through 2016 Problems Code Diagnosis DOS Provider Status R05 COUGH 06-30-2017 [facility] J209 ACUTE 06-29-2017 A Katalina POTTER BRONCHITIS PSC UNSPECIFIED [id number] OTHER 06-29-2017 Denzel POTTER SPECIFIED PSC DISORDERS OF BONE SHOULDER R5383 OTHER 06-29-2017 Denzel POTTER FATIGUE PSC M80246 PAIN IN 04-21-2017 Denzel POTTER RIGHT KNEE PSC N390 URINARY 04-21-2017 Denzel POTTER TRACT PSC INFECTION SITE NOT SPECIFIED R300 DYSURIA 04-21-2017 A Katalina POTTER MD [facility] Z8551 PERSONAL 09-10-2016 [facility] P NEOPLASM OF BLADDER H6591 UNSPECIFIED 06-17-2016 A Katalina POTTER MD [facility] NONSUPPURAT BREANNE OTITIS MEDIA RT EAR J0100 ACUTE 06-17-2016 A Katalina POTTER MAXILLARY [facility] SINUSITIS UNSPECIFIED B958 UNS 05-19-2016 A Katalina POTTER STAPHYLOCOC [facility] CUSS CAUSE OF DZ CLASSIFIED ELSW [id number] ALLERGY 05-19-2016 A Katalina COMBS MD [facility] INITIAL ENCOUNTER R310 GROSS 03-20-2016 [facility] R972 ELEVATED 02-26-2016 [facility] SPECIFIC ANTIGEN PSA M549 DORSALGIA 01-08-2016 [facility] U[facility] H34215 PAIN IN 01-08-2016 A Katalina POTTER RIGHT LEG [facility] R350 FREQUENCY 01-08-2016 A Katalina CASTAÑEDA [facility] MICTURITION R319 HEMATURIA 10-10-2015 [facility] P C679 MALIGNANT 09-26-2015 COMMUNITY NEOPLASM OF ANESTH OF BLADDER THE BLUE UNSPECIFIED N342 OTHER 08-22-2015 A Katalina POTTER URETHRITIS [facility] 5990 URINARY 04-23-2015 A Katalina POTTER TRACT [facility] INFECTION SITE NOT SPECIFIED 7881 DYSURIA 04-23-2015 A Katalina POTTER MD [facility] V692 PROBLEMS 04-23-2015 A Katalina PTOTER RELATED TO [facility] HIGH-RISK SEXUAL BEHAVIOR 96307 UNSPECIFIED 04-16-2015 [facility]UN[facility] DENTAL ANESTH OF CARIES THE BLUE 7242 LUMBAGO 03-26-2015 A Katalina POTTER MD [facility] 4779 ALLERGIC 02-19-2015 A Katalina POTTER RHINITIS [facility] CAUSE UNSPECIFIED 59786 ESOPHAGEAL 02-19-2015 A Katalina POTTER REFLUX [facility] 5259 UNSPECIFIED 11-14-2014 [facility] TEETH&SUPPO MEDICAL SP RTING STRUCTURES 2768 HYPOPOTASSE 05-06-2010 KIRK [facility] 40765 DIARRHEA 05-06-2010 KRUNAL GRAH[facility] 73212 DIAB W/O 01-04-2008 JOELLE COMP TYPE DAVIDE F II/UNS NOT STATED UNCNTRL 2727 LIPIDOSES 01-04-2008 DAVIDE LAI F 7249 OTHER 01-04-2008 HARTING, UNSPECIFIED DICK E BACK DISORDER 7295 PAIN IN 01-04-2008 JOELLE SOFT DAVIDE F TISSUES OF LIMB 37261 REFLUX 12-01-2007 CARI TOLEDO ESOPHAGITIS E 78341 DYSPHAGIA 12-01-2007 CARI TOL[place]O PHARYNGOESO E PHAGEAL [...] 07 08 60 30 00 EA Ac CO 46 -2 -[address] ti [...] 06 07 60 30 00 EA Ac CO 46 -0 -[address] ti OX 20 8- 7- 00 00 SI ve EN 17 20 20 49 DE 90 17 17 05 SO 1 97 PH DI AR UM MA CY 55 0 OF MG CY NT TA HI B AN A IN C DO 49 06 07 14 7 00 EA Ac XY 88 -1 -[address] ti CY 40 4- 7- 00 00 SI ve CL 72 20 20 49 DE IN 70 17 17 13 E 3 07 PH MO AR NO MA CY 10 0 OF MG CY NT CA HI P AN A IN C DI 65 06 07 10 14 00 EA Ac CL 16 -1 -[address] ti OF 20 4- 7- 00 00 SI ve EN 83 20 20 0 49 DE AC 36 17 17 13 6 08 PH SO AR DI MA UM CY 1% OF CY GE NT L HI AN A IN C CE 16 06 [...] NT BL HI ET AN A IN KE 00 04 05 12 30 00 [...] 03 03 60 30 00 EA Ac CO 46 -0 -[address] ti [...] NT BL HI ET AN A IN OM 62 02 03 30 30 00 EA Ac EP 17 -0 -[address] ti RA 50 3- 3- 00 00 SI ve ZO 13 20 20 46 DE LE 64 17 [address] AR MA 40 CY MG OF CY CA NT PS HI UL AN E A IN C CE 16 03 30 30 00 EA Ac TI 71 -0 -[address] ti RI 40 3- 3- 00 00 SI ve ZI 27 20 20 46 DE NE 10 17 17 92 3 38 PH HC AR L MA 10 CY MG OF CY TA NT BL HI ET AN A IN SE 16 02 03 45 30 00 EA Ac RT 71 -0 -[address] ti RA 40 3- 3- 00 00 SI ve LI 61 20 20 47 DE NE 20 17 17 48 6 89 PH HC AR L MA 50 CY MG OF CY TA NT BL HI ET AN A IN CE 16 10 08 30 30 00 EA Ac TI [...] NT BL HI ET AN A IN OM 62 12 01 30 30 00 EA Ac EP 17 -2 -[address] ti RA 50 1- 3- 00 00 SI ve ZO 13 20 20 46 DE LE 64 16 [address] MIGUEL TINEO 40 CY MG OF CY CA NT PS HI UL AN E A IN C Procedures Procedure DOS Code Location Performer Comment RADIOLOGI 82679 [facility] C EXAM 7 MEDICAL CHEST 2 IMAGING VIEWS ASS FRONTAL&L ATERAL COLLECTIO 54907 A C PATRICIO N VENOUS 7 ABBEY HOGAN BLOOD PSC VENIPUNCT URE URINLS 34466 A C KILPELA DIP 7 ABBEY HOGAN STICK/TAB PSC LET REAGNT NON-AUTO MICRSCPY URNLS DIP 95073 CHEO MAHER JR 6 [facility] LET RGNT P NON-AUTO W/[place] [address] CHEO GRIDER ABDOMEN & 6 [facility] PELVIS INC INC W/O CONTRAST MATERIAL CULTURE 39375 [facility] BACTERIAL 6 DIAGNOSTI DIAGNOSTI CS CS QUANTTATI VE COLONY COUNT URINE CULTURE 21029 [facility] BCT 6 DIAGNOSTI DIAGNOSTI ISOL&PRSM CS [place] [address] [facility] PROSTATE 6 DIAGNOSTI DIAGNOSTI SPECIFIC CS CS ANTIGEN TOTAL URINLS 90449 A C KILPELA DIP 6 ABBEY HOGAN JEA STICK/TAB PSC LET REAGNT NON-AUTO MICRSCPY BLOOD 39931 A C KILPELA COUNT 6 ABBEY HOGAN JEDenzel COMPLETE PSC AUTO&AUTO DIFRNTL WBC COMPREHEN 47696 [facility] SIVE 6 DIAGNOSTI DIAGNOSTI METABOLIC CS CS PANEL URNLS DIP 48672 CHEO MAHER JR 5 [facility] LET RGNT P NON-AUTO W/O MICRSCP ECG 05017 CHEO NUNEZ ROUTINE 5 [facility] W/LEAST P 12 LDS I&R ONLY ANES 36710 [facility] TRANSURET 5 ANESTH BELLO HRAL OF THE W/URETHRO BLUE CYSTOSCOP Y NOS CYSTOURET 67603 CHEO GRIDER HROSCOPY 5 [facility] [address] CHEO GRIDER INFUSION 5 [facility] THERAPY INC INC PROPHYLAX IS/DX EA HOUR UNCLASSIF J3490 CHEO GRIDER IED DRUGS 5 [facility] INC INC CHANTAL 93362 CHEO MAHER JR POST-VOID 5 [facility] RESIDUAL P URINE&/BL ADDER CAP URNLS DIP 43512 CHEO MAHER JR 5 [facility] LET RGNT P NON-AUTO W/O MICRSCP SUSCEPTIB 04111 [facility] LTY STDY 5 DIAGNOSTI DIAGNOSTI ANTIMICRB CS CS IAL MICRO/AGA R DILUTJ CUL BACT 20650 [facility] AEROBIC 5 DIAGNOSTI DIAGNOSTI ADDL CS CS METHS DEFINITIV E EA ISOL CULTURE 78600 [facility] BACTERIAL 5 DIAGNOSTI DIAGNOSTI CS CS QUANTTATI VE COLONY COUNT URINE CULTURE 66522 [facility] BCT 5 DIAGNOSTI DIAGNOSTI ISOL&PRSM CS CS PTV ID ISOLATE EA URINE URINLS 90069 A C KILPELA DIP 5 ABBEY HOGAN JEA STICK/TAB PSC LET REAGNT NON-AUTO MICRSCPY URINLS 91671 A C MOHINDER SHABBIR DIP 5 ABBEY HOGAN STICK/TAB PSC LET REAGNT NON-AUTO MICRSCPY CULTURE 07136 [facility] BCT 5 DIAGNOSTI DIAGNOSTI ISOL&PRSM CS CS PTV ID ISOLATE EA URINE CULTURE 23899 [facility] BACTERIAL 5 DIAGNOSTI DIAGNOSTI CS CS QUANTTATI VE COLONY COUNT URINE CUL BACT 19896 [facility] AEROBIC 5 DIAGNOSTI DIAGNOSTI ADDL CS CS METHS DEFINITIV E EA ISOL SUSCEPTIB 87621 [facility] LTY STDY 5 DIAGNOSTI DIAGNOSTI ANTIMICRB CS CS IAL MICRO/AGA R DILUTJ COLLECTIO 75705 A C MOHINDER SHABBIR N VENOUS 5 ABBEY HOGAN BLOOD PSC VENIPUNCT URE URINLS 72782 A C MOHINDER SHABBIR DIP 5 ABBEY HOGAN STICK/TAB PSC LET REAGNT NON-AUTO MICRSCPY ANESTHESI 04380 [facility] 5 ANESTH SHE INTRAORAL OF THE WITH BLUE BIOPSY NOS THERAPEUT 56057 [facility] IC 5 [facility] PROPHYLAC INC. INC. TIC/DX INJECTION SUBQ/IM INJECTION J18[address] [employer] INC. INC. TROMETHAM INE PER 15 MG UNCLASSIF J3490 [facility] IED DRUGS [address] [place] [address]. INC. ALBUMIN 39986 JOELLE LAI, URINE 8 DAVIDE F DAVIDE F MICROALBU MIN SEMIQUANT ITATIVE HEMOGLOBI 87307 JOELLE LAI N 8 DAVIDE F DAVIDE F GLYCOSYLA CHAI A1C RADEX 70223 JOELLE LAI SPINE 8 DAVIDE F DAVIDE F LUMBOSACR AL MINIMUM 4 VIEWS COMPREHEN 47092 [facility] [place] INC METABOLIC PANEL Encounters Encounter Start End Date Code Location Performer Type Date [facility] CHEO Wong 7 [facility] OUTPATIEN INC T OFFICE 48134 A C SINTIA OUTPATIEN 7 7 ABBEY HOGAN T VISIT PSC 25 MINUTES OFFICE 28144 A C DOM OUTPATIEN 7 7 ABBEY HOGAN T VISIT PSC 15 MINUTES OFFICE 97743 CHE[facility] MAHER JR OUTPATIEN 6 6 [facility] 10 P MINUTES OFFICE 16331 A C SINTIA OUTPATIEN 6 6 ABBEY LOWRY T VISIT PSC 15 MINUTES OFFICE 91699 A C SINTIA OUTPATIEN 6 6 ABBEY LOWRY T VISIT PSC 15 MINUTES HOSPITAL CHEO - 6 6 [facility] OUTPATIEN [facility] T OFFICE 59703 A C DOM OUTPATIMARTIN 6 6 ABBEY CUMMINS T VISIT [facility] 15 MINUTES OFFICE 94668 CHEO MAHER JR OUTPATIEN 5 5 [facility] 10 P MINUTES HOSPITAL CHEO - 5 5 [facility] OUTPATIEN INC T OFFICE 84246 CHEO MAHER OUTPATIEN 5 5 [facility] MINUTES P OFFICE [id number] A Katalina FERNANDES OUTPATIEN 5 5 ABBEY CUMMINS T VISIT PSC 15 MINUTES OFFICE [id number] A Katalina VINES SHABBIR OUTPATIEN 5 5 ABBEY HOGAN T VISIT PSC 15 MINUTES OFFICE 84174 A Katalina VINES SHABBIR OUTPATIEN 5 5 ABBEY HOGAN T VISIT PSC 15 MINUTES OFFICE 75396 A C FIELD AMB OUTPATIEN 5 5 ABBEY HOGAN T VISIT PSC 15 MINUTES OFFICE 55917 A C DOM OUTPATIEN 5 5 ABBEY HOGAN [facility] 20 PSC MINUTES [facility] [address] T EMERGENCY [address] [facility] 5 5 EMERG ARABELLA [facility] T VISIT SP HIGH/URGE NT SEVERITY EMERGENCY 77091 [facility] [place] 5 5 [facility] T VISIT MODERATE SEVERITY EMERGENCY 00496 GLADYS GRAHAM, 0 0 KRUNAL HECTOR [facility] Varun Bond T VISIT MODERATE SEVERITY [facility]OSPITAL [facility] - 0 0 [facility] [place] T OFFICE 69941 JOELLE LAI [facility] 8 8 DAVIDE Hurley T VISIT 25 MINUTES OFFICE 78336 [facility] 8 CARI Marie T VISIT 15 MINUTES
--- OUTSIDE RECORDS SUMMARY | 2017-08-27 17:16 | External Medical Summary Rpt | CCD ---
Author Author , ROAS Brar ROSA Address Unknown Phone [email or web address] Care Team Providers Care Hr Associate Name Role Phone A Katalina POTTER MD [facility], A Unavailable Unavailable Katalina POTTER MD PSC ENRIQUE SHABBIR, ENRIQUE Unavailable Unavailable SHABBIR DOMINGO, DOMINGO Unavailable Unavailable LAI DAVIDE F, Unavailable Unavailable LAI, DAVIDE F CARI [place], [place], Unavailable Unavailable CARI BELL, Unavailable Unavailable KRUNAL CHENG, Unavailable Unavailable [facility] Unavailable Unavailable [facility] NIKA JR JEFFERY, NIKA Unavailable Unavailable JR JEFFERY FIELD AMB, FIELD AMB Unavailable Unavailable PATRICIO, PATRICIO Unavailable Unavailable PATRICIO ESSENCE, PATRICIO Unavailable Unavailable ESSENCE [facility] Unavailable Unavailable INC, [facility] Unavailable Unavailable HOSPITAL P, [facility] P DICK DOWNS, Unavailable Unavailable DICK DOWNS [facility] Unavailable Unavailable [facility], [facility] KILPELA, KILPELA Unavailable Unavailable KILPELA JEA, KILPELA Unavailable Unavailable JEA [facility], Unavailable Unavailable [facility] MOHINDER SHABBIR, MOHINDER SHABBIR Unavailable Unavailable [facility] Unavailable Unavailable INC., [facility], Unavailable Unavailable [facility], Unavailable Unavailable [facility] Unavailable Unavailable MEDICAL SP, [facility] CHRIS TSE, Unavailable Unavailable CHRIS MONSALVE, MIRYAM Unavailable Unavailable BELLO Purpose Continuity of Care Document - 12-01-2007 through 2016 Problems Code Diagnosis DOS Provider Status R05 COUGH 06-30-2017 [facility] J209 ACUTE 06-29-2017 A Katalina POTTER BRONCHITIS PSC UNSPECIFIED [id number] OTHER 06-29-2017 Denzel POTTER SPECIFIED PSC DISORDERS OF BONE SHOULDER R5383 OTHER 06-29-2017 Denzel POTTER FATIGUE PSC [id number] PAIN IN 04-21-2017 Denzel POTTER RIGHT KNEE PSC N390 URINARY 04-21-2017 Denzel POTTER TRACT PSC INFECTION SITE NOT SPECIFIED R300 DYSURIA 04-21-2017 A Katalina POTTER MD [facility] Z8551 PERSONAL 09-10-2016 [facility] P NEOPLASM OF BLADDER H6591 UNSPECIFIED 06-17-2016 A Katalina POTTER MD [facility] NONSUPPURAT BREANNE OTITIS MEDIA RT EAR J0100 ACUTE 06-17-2016 A Katalina POTTER MAXILLARY [facility] SINUSITIS UNSPECIFIED B958 UNS 05-19-2016 A Katalina POTTER STAPHYLOCOC [facility] CUSS CAUSE OF DZ CLASSIFIED ELSW [id number] ALLERGY 05-19-2016 A Katalina COMBS MD [facility] INITIAL ENCOUNTER R310 GROSS 03-20-2016 [facility] R972 ELEVATED 02-26-2016 [facility] SPECIFIC ANTIGEN PSA M549 DORSALGIA 01-08-2016 [facility] [id number] PAIN IN 01-08-2016 A Katalina POTTER RIGHT LEG [facility] R350 FREQUENCY 01-08-2016 A Katalina CASTAÑEDA [facility] MICTURITION R319 HEMATURIA 10-10-2015 [facility] P C679 MALIGNANT 09-26-2015 [facility] NEOPLASM OF ANESTH OF BLADDER [facility] UNSPECIFIED N342 OTHER 08-22-2015 A Katalina POTTER URETHRITIS [facility] 5990 URINARY 04-23-2015 A Katalina POTTER TRACT [facility] INFECTION SITE NOT SPECIFIED 7881 DYSURIA 04-23-2015 A Katalina POTTER MD [facility] V692 PROBLEMS 04-23-2015 A Katalina POTTER RELATED TO [facility] HIGH-RISK SEXUAL BEHAVIOR 08489 UNSPECIFIED 04-16-2015 [facility] DENTAL ANESTH OF CARIES [facility] 7242 LUMBAGO 03-26-2015 A Katalina POTTER MD [facility] 4779 ALLERGIC 02-19-2015 A Katalina POTTER RHINITIS [facility] CAUSE UNSPECIFIED 27004 ESOPHAGEAL 02-19-2015 A Katalina POTTER REFLUX [facility] 5259 UNSPECIFIED 11-14-2014 [facility] RTING STRUCTURES 2768 HYPOPOTASSE 05-06-2010 KIRK [facility] 11721 DIARRHEA 05-06-2010 KRUNAL [facility] 90499 DIAB W/O 01-04-2008 JOELLE COMP TYPE DAVIDE F II/UNS NOT STATED UNCNTRL 2727 LIPIDOSES 01-04-2008 DAVIDE LAI F 7249 OTHER 01-04-2008 HARTING, UNSPECIFIED DICK E BACK DISORDER 7295 PAIN IN 01-04-2008 JOELLE SOFT DAVIDE F TISSUES OF LIMB 07483 REFLUX 12-01-2007 CARI TOL[place]O ESOPHAGITIS E 02664 DYSPHAGIA 12-01-2007 CARI [place] PHARYNGOESO E PHAGEAL [...] 07 08 60 30 00 [place] Ac [place] 46 -2 -[address] ti [...] 06 07 60 30 00 [place] 46 -0 -[address] ti [...] 03 03 60 30 00 [place] Ac [place] 46 -0 -[address] ti [...] Procedure DOS Code Location Performer Comment RADIOLOGI 71289 [facility] C EXAM 7 MEDICAL CHEST 2 IMAGING VIEWS ASS FRONTAL&L ATERAL COLLECTIO 66852 A C PATRICIO N VENOUS 7 ABBEY HOGAN BLOOD PSC VENIPUNCT URE URINLS 86067 A C KILPELA DIP 7 ABBEY HOGAN STICK/TAB PSC LET REAGNT NON-AUTO MICRSCPY URNLS DIP 07621 CHEO MAHER JR 6 [facility] LET RGNT P NON-AUTO W/[place] [address] CHEO GRIDER ABDOMEN & 6 [facility] PELVIS INC INC W/O CONTRAST MATERIAL CULTURE 09504 [facility] BACTERIAL 6 DIAGNOSTI DIAGNOSTI CS CS QUANTTATI VE COLONY COUNT URINE CULTURE 26911 [facility] BCT 6 DIAGNOSTI DIAGNOSTI ISOL&PRSM CS [place] [address] [facility] PROSTATE 6 DIAGNOSTI DIAGNOSTI SPECIFIC CS CS ANTIGEN TOTAL URINLS 85395 A C KILPELA DIP 6 ABBEY HOGAN JEA STICK/TAB PSC LET REAGNT NON-AUTO MICRSCPY BLOOD 81985 A C KILPELA COUNT 6 ABBEY HOGAN JEDenzel COMPLETE PSC AUTO&AUTO DIFRNTL WBC COMPREHEN 42520 [facility] SIVE 6 DIAGNOSTI DIAGNOSTI METABOLIC CS CS PANEL URNLS DIP 61017 CHEO MAHER JR 5 [facility] LET RGNT P NON-AUTO W/O MICRSCP ECG 66401 CHEO NUNEZ ROUTINE [address] [facility] W/LEAST P 12 LDS I&R ONLY ANES 16703 [facility] TRANSURET 5 ANESTH BELLO HRAL OF THE W/URETHRO BLUE CYSTOSCOP Y NOS CYSTOURET 70406 CHEO GRIDER HROSCOPY 5 [facility] [address] CHEO GRIDER INFUSION 5 [facility] THERAPY INC INC PROPHYLAX IS/DX EA HOUR UNCLASSIF J3490 [facility] GRIDER IED DRUGS 5 [facility] INC INC CHANTAL 40908 CHEO MAHER JR POST-VOID 5 [facility] RESIDUAL P URINE&/BL ADDER CAP URNLS DIP 60889 CHEO MAHER JR 5 [facility] LET RGNT P NON-AUTO W/O MICRSCP SUSCEPTIB 10557 [facility] LTY STDY 5 DIAGNOSTI DIAGNOSTI ANTIMICRB CS CS IAL MICRO/AGA R DILUTJ CUL BACT 19843 [facility] AEROBIC 5 DIAGNOSTI DIAGNOSTI ADDL CS CS METHS DEFINITIV E EA ISOL CULTURE 44961 [facility] BACTERIAL 5 DIAGNOSTI DIAGNOSTI CS CS QUANTTATI VE COLONY COUNT URINE CULTURE 92581 [facility] BCT 5 DIAGNOSTI DIAGNOSTI ISOL&PRSM CS CS PTV ID ISOLATE EA URINE URINLS 54974 A C KILPELA DIP 5 ABBEY HOGAN JEA STICK/TAB PSC LET REAGNT NON-AUTO MICRSCPY URINLS 82825 A C MOHINDER SHABBIR DIP 5 ABBEY HOGAN STICK/TAB PSC LET REAGNT NON-AUTO MICRSCPY CULTURE 90325 [facility] BCT 5 DIAGNOSTI DIAGNOSTI ISOL&PRSM CS CS PTV ID ISOLATE EA URINE CULTURE 80083 [facility] BACTERIAL 5 DIAGNOSTI DIAGNOSTI CS CS QUANTTATI VE COLONY COUNT URINE CUL BACT 15056 [facility] AEROBIC 5 DIAGNOSTI DIAGNOSTI ADDL CS CS METHS DEFINITIV E EA ISOL SUSCEPTIB 54742 [facility] LTY STDY 5 DIAGNOSTI DIAGNOSTI ANTIMICRB CS CS IAL MICRO/AGA R DILUTJ COLLECTIO 78081 A C MOHINDER SHABBIR N VENOUS 5 ABBEY HOGAN BLOOD PSC VENIPUNCT URE URINLS 01503 A C MOHINDER SHABBIR DIP 5 ABBEY HOGAN STICK/TAB PSC LET REAGNT NON-AUTO MICRSCPY ANESTHESI 96804 [facility] 5 ANESTH SHE INTRAORAL OF THE WITH BLUE BIOPSY NOS THERAPEUT 57328 [facility] IC 5 [facility] [employer] INC. INC. TIC/DX INJECTION SUBQ/IM INJECTION J18[address] [employer] INC. TROMETHAM INE PER 15 MG UNCLASSIF J3490 [facility] IED DRUGS [address] [place] [address]. INC. ALBUMIN 14298 JOELLE LAI, URINE 8 DAVIDE F DAVIDE F MICROALBU MIN SEMIQUANT ITATIVE HEMOGLOBI 34059 JOELLE LAI N 8 DAVIDE F DAVIDE F GLYCOSYLA CHAI A1C RADEX 51482 JOELLE LAI SPINE 8 DAVIDE F DAVIDE F LUMBOSACR AL MINIMUM 4 VIEWS COMPREHEN 67361 [facility] [place] [facility] [place] [facility] METABOLIC PANEL Encounters Encounter Start End Date Code Location Performer Type Date [facility] CHEO Wong 7 [facility] OUTPATIEN INC T OFFICE 42270 A C SINTIA OUTPATIEN 7 7 ABBEY HOGAN T VISIT PSC 25 MINUTES OFFICE 70532 A C DOM OUTPATIEN 7 7 ABBEY HOGAN T VISIT PSC 15 MINUTES OFFICE 51866 CHEO MAHER JR OUTPATIEN 6 6 [facility] 10 P MINUTES OFFICE 79444 A C SINTIA OUTPATIEN 6 6 ABBEY LOWRY T VISIT PSC 15 MINUTES OFFICE 35411 A C [facility] OUTPATIEN 6 6 ABBEY LOWRY T VISIT PSC 15 MINUTES HOSPITAL CHEO - 6 6 [facility] OUTPATIEN [facility] T OFFICE 58449 A C DOM OUTPATIMARTIN 6 6 ABBEY CUMMINS T [facility]IT [facility] 15 MINUTES OFFICE 45692 CHEO MAHER JR OUTPATIEN 5 5 [facility] 10 P MINUTES HOSPITAL CHEO - 5 5 [facility] OUTPATIEN INC T OFFICE 40826 CHEO MAHER OUTPATIEN 5 5 [facility] MINUTES P OFFICE 33089 A Katalina FERNANDES OUTPATIEN 5 5 ABBEY CUMMINS T VISIT PSC 15 MINUTES OFFICE 94322 A Katalina VINES SHABBIR OUTPATIEN 5 5 ABBEY HOGAN T VISIT PSC 15 MINUTES OFFICE 75012 A Katalina VINES SHABBIR OUTPATIEN 5 5 ABBEY HOGAN T VISIT PSC 15 MINUTES OFFICE 22237 A C FIELD AMB OUTPATIEN 5 5 ABBEY HOGAN T VISIT PSC 15 MINUTES OFFICE 81508 A C DOM OUTPATIEN 5 5 ABBEY HOGAN [facility] 20 PSC MINUTES [facility] [address] T EMERGENCY [address]702 [facility] 5 5 EMERG ARABELLA [facility] MEDICAL T VISIT SP HIGH/URGE NT SEVERITY EMERGENCY 24898 VOWINCKEL 5 5 [facility] T VISIT MODERATE SEVERITY EMERGENCY 06896 GLADYS GRAHAM, 0 0 KRUNAL HECTOR [facility] Varun Bond T VISIT MODERATE SEVERITY [facility] 39901 JOELLE LAI [facility] 8 8 DAVIDE Hurley T VISIT 25 MINUTES OFFICE 54135 [facility] 8 8 CARI Marie T VISIT 15 MINUTES
--- OUTSIDE RECORDS SUMMARY | 2017-08-27 17:17 | External Medical Summary Rpt | CCD ---
Demographics Preferred Language Faroese Marital Status Unknown Lutheran Affiliation Unknown Race Unknown Ethnic Group Unknown Author Author , ROSA LEE Address Unknown Phone Immunization No patient found.
--- OUTSIDE RECORDS SUMMARY | 2017-08-27 17:17 | External Medical Summary Rpt ---
Author Author ROSA Foster, [employer] Organization [employer] Address Unknown Phone Unavailable
--- OUTSIDE RECORDS SUMMARY | 2017-08-27 17:17 | External Medical Summary Rpt | CCD ---
Demographics Preferred Language Pashto Marital Status Unknown Yazidism Affiliation Unknown Race Unknown Ethnic Group Unknown Author Author , ROSA LEE Address Unknown Phone Immunization No patient found.
[2017-08-27 17:25] LABS: URINE BLOOD 3+ (NEG)
[2017-08-27 17:26] LABS: URINE BILIRUBIN - DIPSTICK NEGATIVE (NEG)
[2017-08-27] MEDS ORDERED: CIPRO 250MG TA250 MG PO (18:04)
[2017-08-27] MEDS ORDERED: PYRIDIUM100 M2 PO (18:05)
[2017-08-27 18:19] VITALS: BP 100/73
== END 2017-08-27 18:20 | disposition home or self-care (01) ==
LOC: ER 16:48
PROVIDERS: Emergency Medicine
DX: N30.90 Cystitis, unspecified without hematuria (principal); K21.9 Gastro-esophageal reflux disease without esophagitis; F17.210 Nicotine dependence, cigarettes, uncomplicated; Z85.51 Personal history of malignant neoplasm of bladder